=== PATIENT | male | born 1940 | race Caucasian/White ===

== ENCOUNTER 2019-07-27 16:00 | Emergency (ER) | payer MEDICARE ==
[~2019-07-27] VITALS: Ht 182.9 cm; Wt 113.6 kg
[2019-07-27 16:50] LABS: EOS # 0.1 (0.04-0.40); EOS % 1.7 % (0.0-4.0); HEMATOCRIT 46.4 % (42.0-52.0); HEMOGLOBIN 15.3 g/dL (13.5-18.0); MEAN CELL VOLUME 92 fl (78-100); MEAN CORPUSCULAR HEMOGLOBIN 31 pg (27-31); MEAN CORPUSCULAR HGB CONC 33 g/dL (33-37); MEAN PLATELET VOLUME 11.6 fl (7.4-10.4); MONO # 0.6 (0.20-0.80); NEU # 3.5 (1.40-6.50); PLATELET COUNT 180 K/mm3 (130-400); RED BLOOD COUNT 5.02 M/mm3 (4.20-5.60); RED CELL DISTRIBUTION WIDTH 16.6 % (11.5-14.5); WHITE BLOOD COUNT 5.3 K/mm3 (4.8-10.8)
[2019-07-27 16:59] LABS: POTASSIUM 4.4 mmol/L (3.5-5.1); SODIUM 139 mmol/L (136-145)
[2019-07-27 17:00] LABS: CALCIUM 9.1 mg/dL (8.3-10.5)
[2019-07-27 17:01] LABS: GLUCOSE 98 mg/dL (75-110); TOTAL PROTEIN 6.6 g/dL (6.2-8.1)
[2019-07-27 17:02] LABS: CARBON DIOXIDE 22 mmol/L (23-31)
[2019-07-27 17:03] LABS: TOTAL BILIRUBIN 1.3 mg/dL (0.2-1.2)
[2019-07-27 17:06] LABS: AST-SGOT 31 U/L (5-34)
[2019-07-27 17:08] LABS: ALT/SGPT 21 U/L (0-55)
[2019-07-27 17:53] LABS: TROPONIN-I < 0.03 ng/mL (<0.030)
[2019-07-27 17:54] LABS: D-DIMER 0.66 mg/L FEU (0.15-0.50); PROTHROMBIN TIME 54.5 SECONDS (9.0-12.0)
[2019-07-27] MEDS ORDERED: NORVASC 10MG10 MG PO (18:04)
[2019-07-27] MEDS ORDERED: ALLOPURINOL300 M1 PO (18:04)
[2019-07-27] MEDS ORDERED: LISINOPRIL40 MG PO (18:05)
[2019-07-27] MEDS ORDERED: ATENOLOL50 MG PO (18:05)
[2019-07-27] MEDS ORDERED: ASPIRIN E.C. 8181 MG PO (18:05)
[2019-07-27] MEDS ORDERED: CENTRUM ADULTS1 EACH PO (18:06)
[2019-07-27] MEDS ORDERED: PRAVASTATIN SOD10 MG PO (18:07)
[2019-07-27] MEDS ORDERED: OCUVITE TABLET1 TAB PO (18:07)
[2019-07-27] MEDS ORDERED: WARFARIN SOD5 MG PO (18:08)
[2019-07-27] MEDS ORDERED: TRIAMCINOLONE AC0.13 TOP (18:08)
[2019-07-27 18:42] LABS: URINE APPEARANCE CLEAR; URINE COLOR YELLOW
[2019-07-27 18:43] LABS: URINE BILIRUBIN NEGATIVE (NEGATIVE); URINE BLOOD TRACE (NEGATIVE); URINE GLUCOSE NEGATIVE (NEGATIVE); URINE KETONE NEGATIVE (NEGATIVE); URINE LEUKOCYTE ESTERASE NEGATIVE (NEGATIVE); URINE MUCUS PRESENT (NOT PRESENT); URINE NITRATE NEGATIVE (NEGATIVE); URINE PROTEIN(semi-quant) NEGATIVE (NEGATIVE); URINE UROBILINOGEN NORMAL (NORMAL); URINE WBC 0-1 /hpf (0-3)
[2019-07-27 19:10] VITALS: BP 119/94
== END 2019-07-27 19:23 | disposition short-term general hospital (02) ==
LOC: ED 16:00
PROVIDERS: Nurse Practitioner Family
DX: I11.0 Hypertensive heart disease with heart failure (principal); I50.9 Heart failure, unspecified; J90 Pleural effusion, not elsewhere classified; I48.91 Unspecified atrial fibrillation; E78.5 Hyperlipidemia, unspecified; Z79.01 Long term (current) use of anticoagulants; Z87.891 Personal history of nicotine dependence; Z79.82 Long term (current) use of aspirin
CPT/HCPCS: J1940; J3490; J7030

== ENCOUNTER 2021-07-12 02:42 | Emergency (ER) | payer MEDICARE ==
[~2021-07-12 02:42] MED LIST: ALLOPURINOL300 M1 PO; ASPIRIN E.C. 8181 MG PO; ATENOLOL50 MG PO; CENTRUM ADULTS1 EACH PO; LISINOPRIL40 MG PO; NORVASC 10MG10 MG PO; OCUVITE TABLET1 TAB PO; PRAVASTATIN SOD10 MG PO; TRIAMCINOLONE AC0.13 TOP; WARFARIN SOD5 MG PO
[2021-07-12 03:36] LABS: HEMATOCRIT 48.6 % (42.0-52.0); HEMOGLOBIN 16.3 g/dL (13.5-18.0); MEAN CELL VOLUME 92 fl (78-100); MEAN CORPUSCULAR HEMOGLOBIN 31 pg (27-31); MEAN CORPUSCULAR HGB CONC 34 g/dL (33-37); MEAN PLATELET VOLUME 12.6 fl (7.4-10.4); PLATELET COUNT 92 K/mm3 (130-400); RED BLOOD COUNT 5.26 M/mm3 (4.20-5.60); RED CELL DISTRIBUTION WIDTH 17.1 % (11.5-14.5); WHITE BLOOD COUNT 6.7 K/mm3 (4.8-10.8)
[2021-07-12 03:46] LABS: ALBUMIN 2.6 g/dL (3.4-4.8)
[2021-07-12 03:47] LABS: POTASSIUM 3.9 mmol/L (3.5-5.1)
[2021-07-12 03:48] LABS: CALCIUM 8.8 mg/dL (8.3-10.5)
[2021-07-12 03:49] LABS: TOTAL PROTEIN 5.5 g/dL (6.2-8.1)
[2021-07-12 03:51] LABS: TOTAL BILIRUBIN 4.1 mg/dL (0.2-1.2)
[2021-07-12 03:54] LABS: BAND 27 % (0-10); LYMPHOCYTE 2 % (20-51); MONOCYTE 1 % (3-10); NEUTROPHILS 70 % (42-75); TOXIC GRANULATION PRESENT
[2021-07-12 04:01] LABS: TROPONIN-I 0.03 ng/mL (<0.030)
[2021-07-12 05:01] LABS: PROTHROMBIN TIME 109.1 SECONDS (9.0-12.0)
[2021-07-12 05:02] LABS: D-DIMER 8.43 mg/L FEU (0.15-0.50)
[2021-07-12 07:00] VITALS: BP 133/90
== END 2021-07-12 07:00 | disposition short-term general hospital (02) ==
LOC: ED 02:42
PROVIDERS: Physician Assistant
DX: I11.0 Hypertensive heart disease with heart failure (principal); I48.91 Unspecified atrial fibrillation; I95.9 Hypotension, unspecified; R09.02 Hypoxemia; N28.9 Disorder of kidney and ureter, unspecified; R65.21 Severe sepsis with septic shock; L03.116 Cellulitis of left lower limb; L03.115 Cellulitis of right lower limb; F03.90 Unspecified dementia, unspecified severity, without behavioral disturbance, psychotic disturbance, mood disturbance, and anxiety; I25.10 Atherosclerotic heart disease of native coronary artery without angina pectoris; Z87.891 Personal history of nicotine dependence; Z79.01 Long term (current) use of anticoagulants; Z79.82 Long term (current) use of aspirin; Z79.899 Other long term (current) drug therapy
CPT/HCPCS: J2543; J3370; J3430; J7030; J7050; J7060; Q9967